=== PATIENT | male | born 1960 | race Caucasian/White ===

== ENCOUNTER 2017-03-18 23:38 | Emergency (ER) | payer OTHER, BC ==
[~2017-03-18] VITALS: Ht 177.8 cm; Wt 108.0 kg
[2017-03-18 23:41] VITALS: BP 144/92; PULSE 106; RESP 16; TEMP 98.6; O2SAT 97
[2017-03-19] MEDS ORDERED: SIMV20TA PO (00:12)
[2017-03-19] MEDS ORDERED: LISI10TA3 PO (00:12)
--- NOTE | 2017-03-19 00:20 | PD ---
HPI Chief Complaint: Laceration/Skin Injury Time Seen by Provider: 00:11 Travel History International Travel<30 days: No Contact w/Intl Traveler<30days: No Traveled to known affect area: No History of Present Illness HPI 56-year-old male presents to emergency department for evaluation of laceration of the distal left second digit. Patient smashed his finger while at work. He held pressure became to emergency department. Patient states there is not a lot of pain at this point because the finger is numb.. Bleeding is controlled. He is up to date on his tetanus status. He has no limitations range of motion. No other symptoms to report. PFSH Past Medical History High Cholesterol: Yes Diminished Hearing: No Hypertension: Yes Tetanus Vaccination: < 5 Years Influenza Vaccination: No Past Surgical History Eye Surgery: Yes (b/l lens replaced, right eye detactched retnia) Social History Alcohol Use: No Tobacco Use: Yes Substance Use: No Allergies-Medications (Allergen,Severity, Reaction): Coded Allergies: No Known Allergies (Unverified , 03/18/17) Reported Meds & Prescriptions Reported Meds & Active Scripts Active [place] (Hydrocodone-Acetaminophen) 5 Mg-325 Mg Tab 1 Tab PO Q6H PRN Ibuprofen 600 Mg Tab 600 Mg PO Q8HR PRN Keflex (Cephalexin) 500 Mg Cap 500 Mg PO Q6H 5 Days Reported Simvastatin 20 Mg Tab 20 Mg PO DAILY Lisinopril 10 Mg Tab 10 Mg PO DAILY Review of Systems Except as stated in HPI: all other systems reviewed are Neg Physical Exam Narrative GENERAL: Well-nourished, well-developed male patient in no acute distress. SKIN: Focused skin assessment warm/dry. 2 cm laceration on the volar surface of the left distal second digit. Bleeding is controlled. There is a subungual hematoma under the left second nail. HEAD: Normocephalic. EYES: No scleral icterus. No injection or drainage. NECK: Supple, trachea midline. No JVD or lymphadenopathy. CARDIOVASCULAR: Regular rate and rhythm without murmurs, gallops, or rubs. RESPIRATORY: Breath sounds equal bilaterally. No accessory muscle use. GASTROINTESTINAL: Abdomen soft, non-tender, nondistended. MUSCULOSKELETAL: No cyanosis, or edema. He has full flexion-extension of the affected digit. Cap refills within normal limits. BACK: Nontender without obvious deformity. No CVA tenderness. Data Data Last Documented VS Vital Signs Date Time Temp Pulse Resp B/P (MAP) Pulse Ox O2 Delivery O2 Flow Rate FiO2 03/19/17 02:04 03/18/17 23:41 98.6 106 16 97 Orders Orders Finger ([id number]) (03/19/17 ) Lidocaine Pf 2% Inj (Xylocaine-Mpf 2% In (03/19/17 00:30) Cefazolin Inj (Ancef Inj) (03/19/17 00:45) Ed Discharge Order (03/19/17 01:22) Splint Or Brace Apply/Monitor (03/19/17 01:26) [facility] Medical Decision Making Medical Screen Exam Complete: Yes Emergency Medical Condition: Yes Medical Record Reviewed: Yes Differential Diagnosis Open fracture versus laceration versus abrasion versus avulsion Narrative Course 56-year-old male presents to emergency department for evaluation of an injury sustained to his left second digit. Patient does have a crush injury that resulted in an open distal tuft fracture. It is cleansed, irrigated, and approximated. He will be sent home on oral antibiotics empirically. He verbalizes understanding and agrees to return immediately with any acute worsening of symptoms.. Diagnosis Primary Impression: Open fracture of distal phalangeal tuft with routine healing Referrals: Hand Surgeon Primary Care Physician Patient Instructions: Finger Laceration (ED), General Instructions Additional Instructions: Splint for support Elevate to reduce pain and swelling You may wash your hands with warm soapy water Make sure hand is completely dry prior to applying a dressing Follow-up with hand specialist Sutures are to be removed in 10 days. This can be done emergency department by her primary care provider's office. Return immediately with any acute worsening of symptoms Med/Other Pt SpecificInfo: Prescription(s) given Scripts Hydrocodone-Acetaminophen ([place]) 5 Mg-325 Mg Tab 1 TAB PO Q6H Y for PAIN GREATER THAN 6, #12 TAB 0 Refills Prov: Betina Salazar 03/19/17 Ibuprofen (Ibuprofen) 600 Mg Tab 600 MG PO Q8HR Y for PAIN, #30 TAB 0 Refills Prov: Betina Salazar 03/19/17 Cephalexin (Keflex) 500 Mg Cap 500 MG PO Q6H for Infection for 5 Days, #20 CAP 0 Refills Prov: Betina Salazar 03/19/17 Disposition: 01 DISCHARGE HOME Condition: Stable Betina Salazar Mar 19, 2017 00:20
[2017-03-19] MEDS ORDERED: LIDOCAINE HCL 2% PF SOLN 10 ML VIAL INFIL ONE (00:30)
--- NOTE | 2017-03-19 00:50 | RADRPT ---
EXAM DATE/TIME: 03/19/2017 00:20 [facility] COMPARISON: No previous studies available for comparison. INDICATIONS : Left hand second digit pain. Patient states he dropped a block on his finger. MEDICAL HISTORY : None. SURGICAL HISTORY : None. ENCOUNTER: Initial ACUITY: 1 day PAIN SCORE: 2/10 LOCATION: Left hand, second digit. FINDINGS: There is a fracture through the distal tuft of the second distal phalanx. No other fracture is seen. CONCLUSION: Acute fracture through the distal tuft of the second distal phalanx. Macario Pope MD on March 19, 2017 at 0:46 Board Certified Radiologist. This report was verified electronically.
[2017-03-19] MEDS ORDERED: NORC5TAB PO (01:25)
[2017-03-19] MEDS ORDERED: CEPH-460 PO (01:25)
[2017-03-19] MEDS ORDERED: IBUP-232 PO (01:25)
== END 2017-03-19 02:18 | disposition home or self-care (01) ==
LOC: NEPD 23:38
DX: S62.631B Displaced fracture of distal phalanx of left index finger, initial encounter for open fracture (principal); S67.191A Crushing injury of left index finger, initial encounter; I10 Essential (primary) hypertension; E78.00 Pure hypercholesterolemia, unspecified; W22.8XXA Striking against or struck by other objects, initial encounter; Y99.0 Civilian activity done for income or pay; Z72.0 Tobacco use
CPT/HCPCS: 12001; 73140; 96372; 99284; J0690

== ENCOUNTER 2017-03-29 09:24 | Emergency (ER) | payer OTHER, BC ==
[~2017-03-29] VITALS: Ht 177.8 cm; Wt 109.0 kg
[~2017-03-29 09:24] MED LIST: CEPH-460 PO; IBUP-232 PO; LISI10TA3 PO; NORC5TAB PO; SIMV20TA PO
[2017-03-29 09:27] VITALS: BP 159/81; PULSE 88; RESP 14; TEMP 98.9; O2SAT 98
--- NOTE | 2017-03-29 11:36 | PD ---
HPI Chief Complaint: Wound/Suture/Staple Re-Check Time Seen by Provider: 11:29 Travel History International Travel<30 days: No Contact w/Intl Traveler<30days: No Traveled to known affect area: No History of Present Illness HPI The patient is a 56-year-old male who presents emergency department for suture removal of the second digit left hand. The patient states he had a distal tuft fracture and had sutures placed in the second digit left hand, volar aspect, week ago Saturday. He has been taking the bandage and splint off daily, cleaning it, states his been no drainage from the area. He does state it slightly painful and there is some bruising of the nail, however, his symptoms have improved. He is right-hand dominant. His tetanus shot is up-to- date. PFSH Past Medical History Cardiovascular Problems: Yes High Cholesterol: Yes Diminished Hearing: No Hypertension: Yes Past Surgical History Eye Surgery: Yes (b/l lens replaced, right eye detactched retnia) Social History Alcohol Use: No Tobacco Use: Yes Substance Use: No Allergies-Medications (Allergen,Severity, Reaction): Coded Allergies: No Known Allergies (Unverified , 03/29/17) Reported Meds & Prescriptions Reported Meds & Active Scripts Active [place] (Hydrocodone-Acetaminophen) 5 Mg-325 Mg Tab 1 Tab PO Q6H PRN Ibuprofen 600 Mg Tab 600 Mg PO Q8HR PRN Keflex (Cephalexin) 500 Mg Cap 500 Mg PO Q6H 5 Days Reported Simvastatin 20 Mg Tab 20 Mg PO DAILY Lisinopril 10 Mg Tab 10 Mg PO DAILY Review of Systems General / Constitutional: No: Fever Musculoskeletal: Positive: Other (as noted in the history of present illness) Skin: Positive Other (as noted in the history of present illness) Neurologic: No: Paresthesia, Sensory Disturbance Physical Exam Narrative GENERAL: Awake, alert, pleasant 56-year-old male who appears his stated age is in no acute respiratory distress. SKIN: Focused skin assessment warm/dry. HEAD: Atraumatic. Normocephalic. MUSCULOSKELETAL: No obvious deformities. No clubbing. No cyanosis. No edema. [address] for lower aspect second digit left hand. No drainage. Bruising of the nail noted. NEUROLOGICAL: Awake and alert. No obvious cranial nerve deficits. Motor grossly within normal limits. Normal speech. PSYCHIATRIC: Appropriate mood and affect; insight and judgment normal. Data Data Last Documented VS Vital Signs Date Time Temp Pulse Resp B/P (MAP) Pulse Ox O2 Delivery O2 Flow Rate FiO2 03/29/17 09:27 98.9 88 14 159/81 (107) 98 [facility] Medical Decision Making Medical Screen Exam Complete: Yes Emergency Medical Condition: Yes Medical Record Reviewed: Yes Differential Diagnosis Differential diagnoses includes tuft fracture, subungual hematoma, suture removal. Narrative Course The patient's sutures were removed. He is advised to apply Polysporin and a dressing over the affected area and to avoid trauma to the distal aspect of the second digit left hand. His advised to follow-up with his primary physician. He states his tetanus shot is up-to-date. Diagnosis Primary Impression: Visit for suture removal Patient Instructions: General Instructions Additional Instructions: Wound care instructions. Follow-up with your primary physician. Return if symptoms worsen or progress. Med/Other Pt SpecificInfo: No Change to Meds Disposition: 01 DISCHARGE HOME Condition: Stable Scott Wilson MD Mar 29, 2017 11:36
[2017-03-29 11:54] VITALS: BP 148/76
== END 2017-03-29 12:02 | disposition home or self-care (01) ==
LOC: NEPD 09:24
DX: Z48.02 Encounter for removal of sutures (principal); E78.00 Pure hypercholesterolemia, unspecified; I10 Essential (primary) hypertension; Z72.0 Tobacco use; Z79.899 Other long term (current) drug therapy
CPT/HCPCS: 99281